=== PATIENT | male | born 1975 | race Caucasian/White ===

== ENCOUNTER 2017-03-31 15:25 | Inpatient (IN) | payer MEDICAID ==
[~2017-03-31] VITALS: Ht 182.9 cm; Wt 90.7 kg
--- NOTE | 2017-03-31 06:40 | NUR ---
RECEIVED PT AWAKE AND LYING ON A GURNEY ACCOMPANIED BY , MONICA, NO S/S OF RESPIRATORY DISTRESS, SKIN IS INTACT, WITH IV ACCESS AT RIGHT ARM 20G INFUSING FLUIDS WELL. ORIENTED PT TO HOSPITAL ROOM, DISCUSSED PLAN OF CARE PT, VERBALIZED UNDERSTANDING. SAFETY PRECAUTIONS ENFORCED. CALL LIGHT WITHIN REACH, WILL CONTINUE TO MONITOR. Addendum: 03/31/17 at 1943 by Clementina Boswell RN RECEIVED PT AT 1840
[2017-03-31 15:35] VITALS: BP 145/75
[2017-03-31] MEDS ORDERED: ACETAMINOPHEN EXTRA STRENGTH 500 MG TAB PO ONE (15:45)
--- NOTE | 2017-03-31 15:45 | NUR ---
Patient ambulated to bed 4. RN evaluating patient at bedside.
--- NOTE | 2017-03-31 15:50 | NUR ---
42M BIB FAMILY C/O FEVER X 2 DAYS; PT STATES HAS PRODUCTIVE COUGH W/ PHELGM X 2 DAYS; BL LUNG SOUNDS CLEAR, RR EVEN/UNLABORED; PT C/O NAUSEA, BUT DENIES V/D AT THIS TIME; ABDOMEN SOFT, NON-TENDER, ACTIVE BOWEL SOUNDS X 4 QUADRANTS; PT A&OX4, PERRLA; PT C/O GENERALIZED BODY ACHES, ACHING, NON-RADIATING, 8/10 X 2 DAYS; SKIN IS WARM/DRY/INTACT AT THIS TIME; PT RESTING IN BED W/ HOB ELEVATED AND IN LOWEST POSITION; POSITIONED FOR COMFORT; ER MD MADE AWARE OF STATUS. WILL CONTINUE TO MONITOR.
--- NOTE | 2017-03-31 16:45 | NUR ---
PT TEMP 102.3; ER MD DR. ARANDA NOTIFIED; COOLING MEASURES INITIATED; ICE PACKS W/ TOWELS PROVIDED TO BL RADHA; RR EVEN/UNLABORED AT THIS TIME; WILL CONTINUE TO MONITOR PT.
[2017-03-31] MEDS ORDERED: IBUPROFEN 800 MG TAB PO ONE (16:50)
[2017-03-31] MEDS ORDERED: IBUPROFEN 800 MG TAB ONE (16:53)
--- NOTE | 2017-03-31 17:39 | NUR ---
PT TEMP 101.9; ER MD DR. ARANDA NOTIFIED; COOLING MEASURES INITIATED; RR EVEN/UNLABORED AT THIS TIME; WILL CONTINUE TO MONITOR PT.
[2017-03-31] MEDS ORDERED: LEVOFLOXACIN 750 MG/D5W PREMIX 150 ML IV ONE (17:45)
--- NOTE | 2017-03-31 18:23 | NUR ---
REPORT GIVEN TO TETE SYLVESTER
[2017-03-31] MEDS ORDERED: ACETAMINOPHEN 325 MG TAB PO PRN (18:30)
[2017-03-31] MEDS ORDERED: ONDANSETRON 4 MG/2 ML VIAL IVP PRN (18:30)
--- NOTE | 2017-03-31 18:35 | NUR ---
Patient will be admitted to care of DR. NOLEN. Admited to TELEMETRY. Will go to room 11B. Belongings list completed. Report to TETE SYLVESTER.
[2017-03-31] MEDS ORDERED: ALBUTEROL SULFATE/IPRATROPIU 3 ML SOL IH PRN (18:45)
[2017-03-31] MEDS: NACL 0.9% 1,000 ML IV SCH (19:18)
[2017-03-31 19:30] VITALS: BP 117/65
--- NOTE | 2017-03-31 19:30 | NUR ---
ASSUMED CARE. ADMITTED A 42 YEAR OLD MALE WHO WAS BROUGHT IN AT AROUND 1840 WITH A DIAGNOSIS OF FEVER,PNEUMONIA. PT.IS ALERT,ORIENTED, AMBULATORY. AFEBRILE, NOT IN ACUTE DISTRESS.VERBALIZED MID BACK PAIN. ALSO NOTED TO HAVE INTERMITTENT PRODUCTIVE COUGH. IV FLUIDS NS INFUSING AT 80 ML/HR VIA RJT AC. SAO2=98% ON ROOM AIR. AT BEDSIDE. VS STABLE, WILL CONTINUE TO MONITOR. NEEDS ATTENDED.
--- NOTE | 2017-03-31 19:40 | NUR ---
ENDORSED PT TO TETE WILLS FOR CONTINUITY OF CARE IN STABLE CONDITION
[2017-03-31] MEDS: ALBUTEROL SULFATE/IPRATROPIU 3 ML SOL IH SCH (20:16)
[2017-03-31] MEDS: HYDROcodone/APAP 5/325 MG 1 TAB TAB PO PRN (21:27)
--- NOTE | 2017-03-31 21:27 | NUR ---
NORCO 1 TABLET PO GIVEN FOR BACK PAIN.
--- NOTE | 2017-03-31 22:30 | NUR ---
VERBALIZED SIGNIFICANT IMPROVEMENT OF PAIN (5/10).
[2017-04-01] VITALS: BP 116/70
--- NOTE | 2017-04-01 | NUR ---
AWAKE,NOT IN ANY KIND OF DISTRESS. VERBALIZED RELIEF OF BACK PAIN BUT VERBALIZED MILD HEADACHE. PAIN MEDICATION NOT DUE. OTHERWISE VS STABLE. SIDE RAILS UP,CALL LIGHT WITHIN REACH. KEPT WARM AND COMFORTABLE. REMAINS AT BEDSIDE.
[2017-04-01] MEDS: HYDROcodone/APAP 5/325 MG 1 TAB TAB PO PRN ×4 (02:02→20:45)
--- NOTE | 2017-04-01 02:02 | NUR ---
COMPLAINED OF WORSENING HEADACHE (8/). NORCO 1 TAB. PO GIVEN.
[2017-04-01 04:00] VITALS: BP 112/62
--- NOTE | 2017-04-01 04:00 | NUR ---
AWAKE. VERBALIZED TOTAL RELIEF OF HEADACHE. VS REMAIN STABLE. GEM CONTINUE TO MONITOR.
--- NOTE | 2017-04-01 05:53 | NUR ---
URINE SPECIMEN COLLECTED AND SENT TO THE LAB.
[2017-04-01] MEDS: NACL 0.9% 1,000 ML IV SCH ×2 (06:59→16:14)
[2017-04-01] MEDS: ALBUTEROL SULFATE/IPRATROPIU 3 ML SOL IH SCH ×4 (07:27→19:45)
--- NOTE | 2017-04-01 07:35 | NUR ---
ENDORSED CARE TO QUE EPSTEIN.
--- NOTE | 2017-04-01 07:40 | NUR ---
RECEIVED REPORT FROM TETE BARRY. PT IS A/OX4, AMBULATORY, IV ON THE RT AC, PATENT, INTACT, FLUSHING WELL, SKIN IS INTACT, NO S/S OF RESPIRATORY DISTRESS OR DISCOMFORT NOTED, SAFETY/FALL PRECAUTIONS IN PLACE, IS AT BEDSIDE, DISCUSSED PLAN OF CARE WITH PT, PT VERBALIZED UNDERSTANDING, CALL LIGHT WITHIN REACH, WILL CONTINUE TO MONITOR.
[2017-04-01 08:00] VITALS: BP 127/72
[2017-04-01] MEDS ORDERED: AZITHROMYCIN 250 MG TAB PO ONE (09:00)
[2017-04-01] MEDS: LACTOBACILLUS RHAMNOSUS GG 1 EACH CAP PO SCH (09:29)
[2017-04-01] MEDS: DOCUSATE SODIUM 100 MG GELCAP PO SCH (09:29)
[2017-04-01] MEDS ORDERED: AZITHROMYCIN 250 MG TAB PO SCH (09:33)
--- NOTE | 2017-04-01 09:40 | NUR ---
PT SITTING IN BED EATING BREAKFAST, CALL LIGHT WITHIN REACH.
[2017-04-01 12:00] VITALS: BP 130/76
--- NOTE | 2017-04-01 12:00 | NUR ---
PT IS RESTING IN BED WATCHING TV, IS AT BEDSIDE, CALL LIGHT WITHIN REACH.
--- NOTE | 2017-04-01 14:00 | NUR ---
PT IS SLEEPING AT THIS TIME.
[2017-04-01 16:00] VITALS: BP 125/69
--- NOTE | 2017-04-01 16:00 | NUR ---
PT SITTING IN BED WATCHING TV, FAMILY IS AT BEDSIDE, CALL LIGHT WITHIN REACH.
--- NOTE | 2017-04-01 19:25 | NUR ---
ENDORSED PT TO TETE GARRISON. FOR CONTINUITY OF CARE. PT STABLE AT THIS TIME.
--- NOTE | 2017-04-01 19:26 | NUR ---
RECEIVED REPORT FROM DAY RN FOR CONTINUITY OF CARE. PATIENT IS A&OX4, DISCUSSED PLAN OF CARE WITH PATIENT, VERBALIZED UNDERSTANDING. SHIFT ASSESSMENT DONE, VS TAKEN, STABLE. NO S/S OF RESPIRATORY DISTRESS NOTED ON ROOM AIR. PATIENT STATES HEADACHE AT THIS TIME, WILL MEDICATE PER MD ORDER. IV TO TR AC 20 GAUGE PATENT AND INFUSING FLUIDS WELL. SAFETY PRECAUTIONS ENFORCED. CALL LIGHT WITHIN REACH. WILL CONTINUE TO MONITOR.
[2017-04-01 20:00] VITALS: BP 129/84
--- NOTE | 2017-04-01 20:45 | NUR ---
PATIENT COMPLAINED OF HEADACHE, MEDICATED PER MD ORDER. AT BESIDE. WILL CONTINUE TO MONITOR.
--- NOTE | 2017-04-01 22:15 | NUR ---
PATIENT UP PERFORMING PM CARE WITH ASSISTANCE FROM . NO S/S OF DISTRESS NOTED. WILL CONTINUE TO MONITOR.
[2017-04-02] VITALS: BP 127/70
[2017-04-02] MEDS: NACL 0.9% 1,000 ML IV SCH ×2 (00:10→07:38)
--- NOTE | 2017-04-02 00:15 | NUR ---
VS TAKEN, STABLE. PATIENT IS NOW SLEEPING, NO S/S OF DISTRESS OR DISCOMFORT NOTED. CALL LIGHT IN REACH.
--- NOTE | 2017-04-02 02:00 | NUR ---
PATIENT IS SLEEPING. NO S/S OF DISTRESS OR DISCOMFORT NOTED. CALL LIGHT WITHIN REACH.
[2017-04-02 04:00] VITALS: BP 127/66
--- NOTE | 2017-04-02 04:00 | NUR ---
VS TAKEN, STABLE. PT SLEEPING AT THIS TIME. NO S/S OF DISTRESS NOTED. WILL CONTINUE TO MONITOR.
[2017-04-02] MEDS: HYDROcodone/APAP 5/325 MG 1 TAB TAB PO PRN (06:08)
--- NOTE | 2017-04-02 06:08 | NUR ---
PT C/O HEADACHE 05/05, MEDICATED PER MD ORDER. WILL CONTINUE TO MONITOR.
--- NOTE | 2017-04-02 07:22 | NUR ---
ENDORSED PATIENT TO DAY RN FOR CONTINUITY OF CARE, PATIENT IS IN STABLE CONDITION.
--- NOTE | 2017-04-02 07:25 | NUR ---
RECEIVED REPORT FROM TETE GARRISON. PT IS A/OX4, AMBULATORY, IV ON THE RT AC, PATENT, INTACT, FLUSHING WELL, SKIN IS INTACT, NO S/S OF RESPIRATORY DISTRESS OR DISCOMFORT NOTED, SAFETY/FALL PRECAUTIONS IN PLACE, IS AT BEDSIDE, DISCUSSED PLAN OF CARE WITH PT, PT VERBALIZED UNDERSTANDING, CALL LIGHT WITHIN REACH, WILL CONTINUE TO MONITOR.
[2017-04-02 08:00] VITALS: BP 119/66
--- NOTE | 2017-04-02 08:07 | NUR ---
AWAKE AND ALERT NO SOB NOTED PATIENT WITH AM TRAY GRAPPLE YARDER OPERATOR TO ATTEMPT HHN THERAPY AT A LATER TIME
[2017-04-02] MEDS: ALBUTEROL SULFATE/IPRATROPIU 3 ML SOL IH SCH ×2 (08:36→11:55)
[2017-04-02] MEDS: LACTOBACILLUS RHAMNOSUS GG 1 EACH CAP PO SCH (08:54)
[2017-04-02] MEDS: DOCUSATE SODIUM 100 MG GELCAP PO SCH (08:54)
[2017-04-02] MEDS ORDERED: AZITHROMYCIN 250 MG TAB PO SCH (09:00)
--- NOTE | 2017-04-02 09:30 | NUR ---
PT IS SITTING IN BED, WATCHING TV, IS AT BEDSIDE, NO S/S OF RESPIRATORY DISTRESS OR DISCOMFORT NOTED, CALL LIGHT WITHIN REACH, WILL CONTINUE TO MONITOR.
[2017-04-02] MEDS ORDERED: ZITHROMAX250 MG PO ×2 (10:53→12:29)
[2017-04-02] MEDS ORDERED: VENTOLIN H0.09 MG/Ac IH (10:55)
[2017-04-02] MEDS ORDERED: FIORICET 300 MG1 CAP PO (10:56)
[2017-04-02] MEDS ORDERED: KETOROLAC 30 MG/ML VIAL IM SCH (11:16)
--- NOTE | 2017-04-02 11:30 | NUR ---
PT SITTING IN BED, WATCHING TV, IS AT BEDSIDE.
[2017-04-02 12:00] VITALS: BP 118/72
--- NOTE | 2017-04-02 12:22 | NUR ---
RECEIVED A PHONE CALL FROM [facility], WAS TOLD THEY NEEDED IN ACTUAL PAPER PRESCRIPTION FOR THE FIORICET BECAUSE IT IS A SCHEDULED 3 MEDICATION AND FOR THE AZITHROMYCIN THEY NEED THE ACTUAL QUANTITY TO BE ENTERED.
--- NOTE | 2017-04-02 12:25 | NUR ---
I WENT AHEAD AND LET THE RESIDENT DOCTOR KNOW. HE SAID HE WOULD WRITE A RX FOR THE FIORICET AND CORRECT THE AZITHROMYCIN.
--- NOTE | 2017-04-02 13:00 | NUR ---
PT DISCHARGE INSTRUCTIONS GIVEN, ID WRIST BAND REMOVED, IV REMOVED, CATHETER TIP INTACT. PT STABLE UPON DISCHARGE, ACCOMPANIED BY .
== END 2017-04-02 13:00 | disposition home or self-care (01) | DRG 720 ==
LOC: MED 15:25 → MTU 17:54
PROVIDERS: ADMIT Student in an Organized Health Care Education/Training Program; ATTEND Student in an Organized Health Care Education/Training Program
DX: A41.9 Sepsis, unspecified organism (principal); N17.0 Acute kidney failure with tubular necrosis; J18.9 Pneumonia, unspecified organism; E78.1 Pure hyperglyceridemia; E78.5 Hyperlipidemia, unspecified; Z72.89 Other problems related to lifestyle; Z83.3 Family history of diabetes mellitus

== ENCOUNTER 2017-04-15 22:55 | Emergency (ER) | payer MEDICAID ==
[~2017-04-15] VITALS: Ht 182.9 cm; Wt 90.7 kg
[~2017-04-15 22:55] MED LIST: ACET-9234 PO; ALBU0.0912 IH; AZIT250T3 PO
[2017-04-15 23:08] VITALS: BP 140/85
--- NOTE | 2017-04-16 00:53 | NUR ---
TO ER OF3
--- NOTE | 2017-04-16 01:17 | NUR ---
Patient being evaluated by physician.
[2017-04-16] MEDS ORDERED: LEVOFLOXACIN 500 MG TAB PO ONE (01:20)
[2017-04-16 02:00] VITALS: BP 140/85
--- NOTE | 2017-04-16 02:00 | NUR ---
Patient discharged with v/s stable. Written and verbal after care instructions given and explained. Patient alert, oriented and verbalized understanding of instructions. Ambulatory with steady gait. All questions addressed prior to discharge. ID band removed. Patient advised to follow up with PMD. Rx of augmentin and dextromethorphan given. Patient educated on indication of medication including possible reaction and side effects. Opportunity to ask questions provided and answered.
== END 2017-04-16 02:00 | disposition home or self-care (01) ==
LOC: MED 22:55
DX: J18.9 Pneumonia, unspecified organism (principal); R03.0 Elevated blood-pressure reading, without diagnosis of hypertension
CPT/HCPCS: 71020; 99284

== ENCOUNTER 2017-11-06 13:00 | Emergency (ER) | payer MEDICAID ==
[~2017-11-06] VITALS: Ht 182.9 cm; Wt 95.3 kg
[2017-11-06 13:10] VITALS: BP 138/76
--- NOTE | 2017-11-06 15:15 | NUR ---
PATIENT TO BED 12 AT THIS TIME.
--- NOTE | 2017-11-06 15:22 | NUR ---
42/M c/o cough/ congestions x4 days. Pt describes having a productive cough with green phlegm and a fever yesterday, denies fever today. Denies N/V/D. Pt reports being admitted here 6 months ago for PNA. Lungs diminished throughout. AOX4, czech speaking. VSS. at bedside.
[2017-11-06 17:00] VITALS: BP 129/77
--- NOTE | 2017-11-06 17:00 | NUR ---
Patient discharged with v/s stable. Written and verbal after care instructions given and explained. Patient verbalized understanding. Ambulatory with steady gait. All questions addressed prior to discharge. Advised to follow up with PMD.
== END 2017-11-06 17:00 | disposition home or self-care (01) ==
LOC: MED 13:00
DX: J06.9 Acute upper respiratory infection, unspecified (principal); R03.0 Elevated blood-pressure reading, without diagnosis of hypertension; R05 Cough; Z79.899 Other long term (current) drug therapy
CPT/HCPCS: 71010; 99283

== ENCOUNTER 2018-05-10 22:23 | Emergency (ER) | payer MEDICAID ==
[~2018-05-10] VITALS: Ht 182.9 cm; Wt 95.3 kg
[2018-05-10 22:27] VITALS: BP 141/81
[2018-05-10] MEDS ORDERED: DICYCLOMINE HCL LIQUID 20 MG, ALUMINUM HYD/MAG/SIMETHICONE 30 ML, LIDOCAINE VISCOUS 2% ... PO ONE ×3 (23:05)
[2018-05-10] MEDS ORDERED: KETOROLAC 30 MG/ML VIAL IM ONE (23:05)
[2018-05-10 23:35] LABS: BASOPHILS % (AUTO) 0.6 % (0.0-2.0); EOSINOPHILS # (AUTO) 0.2 K/uL (0-0.4); EOSINOPHILS % (AUTO) 2.8 % (0.0-4.0); HEMATOCRIT 38.3 % (36-52); HEMOGLOBIN 13.2 g/dL (12.0-18.0); LYMPHOCYTES # (AUTO) 2.3 K/uL (2.0-11.5); MEAN CORPUSCULAR HEMOGLOBIN 28 pg (27-31); MEAN CORPUSCULAR HGB CONC 34 g/dL (33-37); MEAN CORPUSCULAR VOLUME 81.1 fL (80-94); MONOCYTES # (AUTO) 0.5 K/uL (0.8-1.0); MONOCYTES % (AUTO) 8.4 % (1.7-9.3); NEUTROPHILS # (AUTO) 2.7 K/uL (1.8-7.7); NEUTROPHILS % (AUTO) 48.2 % (42.2-75.2); PLATELET COUNT (AUTO) 188 K/uL (140-450); RED BLOOD CELL COUNT(AUTO) 4.71 MIL/uL (4.20-6.10); RED CELL DISTRIBUTION WIDTH 12.8 % (11.6-13.7); WHITE BLOOD COUNT (AUTO) 5.6 K/uL (4.8-10.8)
[2018-05-10 23:42] LABS: ANION GAP 11.6 (8-16); CARBON DIOXIDE 29.3 mmol/L (21-32); CREATININE 1.2 mg/dL (0.7-1.3); POTASSIUM 3.9 mmol/L (3.5-5.1)
[2018-05-10 23:48] LABS: ALBUMIN 3.4 g/dL (3.4-5.0); TOTAL BILIRUBIN 0.3 mg/dL (0.0-1.0)
[2018-05-11 00:24] VITALS: BP 141/81
== END 2018-05-11 00:24 | disposition home or self-care (01) ==
LOC: MED 22:23
DX: R10.9 Unspecified abdominal pain (principal); R14.0 Abdominal distension (gaseous); F17.210 Nicotine dependence, cigarettes, uncomplicated
CPT/HCPCS: 36415; 74176; 80053; 81002; 83690; 85025; 96372; 99285; J1885

== ENCOUNTER 2022-05-19 15:56 | Emergency (ER) | payer BC, MEDICAID, OTHER ==
[~2022-05-19] VITALS: Ht 182.9 cm; Wt 86.2 kg
[2022-05-19 16:27] VITALS: BP 130/82
--- NOTE | 2022-05-19 16:30 | NUR ---
47 y/o male, c/o low back pain radiates to right leg that started 3 days. denies fall, overexertion or injury. denies hematuria, dysuria, or urinary rentention. pt states it feels like a numbing sensation, 6/10 at this time. denies nausea, vomiting, diarrhea. skin is pink/warm/dry. a&o x4 with even and steady gait. lungs clear bl, heart rate even and regular. pt denies any fever, cp, sob, or cough at this time. vss. ermd made aware of pt. pmh: denies nka med: denies
[2022-05-19] MEDS ORDERED: KETOROLAC 30 MG/ML VIAL ONE (17:13)
[2022-05-19] MEDS ORDERED: KETOROLAC 30 MG/ML VIAL IM ONE (17:15)
[2022-05-19] MEDS ORDERED: IBUP-2213 PO (18:24)
[2022-05-19] MEDS ORDERED: LID5T TP (18:25)
--- NOTE | 2022-05-19 18:36 | NUR ---
Patient discharged with v/s stable. Written and verbal after care instructions given and explained. Patient alert, oriented and verbalized understanding of instructions. Ambulatory with steady gait. All questions addressed prior to discharge. ID band removed. Patient advised to follow up with PMD. Rx of motrin, lidoderm patch given. Patient educated on indication of medication including possible reaction and side effects. Opportunity to ask questions provided and answered.
== END 2022-05-19 18:32 | disposition home or self-care (01) ==
LOC: MED 15:56
DX: M54.31 Sciatica, right side (principal)
CPT/HCPCS: 72110; 81002; 96372; 99283; J1885